=== PATIENT | male | born 1945 | race Caucasian/White ===

== ENCOUNTER 2016-06-10 07:41 | Emergency (ER) | payer MEDICARE, OTHER ==
[2016-06-10 08:30] LABS: Bilirubin Negative (Negative); Blood, Urine Negative (Negative); Clarity Clear (Clear); Glucose, Urine (Dipstick) Negative (Negative); Leukocyte Negative (Negative); Nitrite Negative (Negative); Protein, Urine (Dipstick) Negative (Neg-Trace); Specific Gravity, Urine 1.015 (1.005-1.030); Urobilinogen 0.2 mg/dL (0.2-1.0)
[2016-06-10] MEDS ORDERED: Ketorolac Tromethamine 30 MG/ML VIAL ONE (08:39)
[2016-06-10 09:00] LABS: #Lymphocytes 0.7 thou/uL (1.20-3.40); #Monocytes 0.4 thou/uL (0.11-0.59); #Neutrophils 3.1 thou/uL (1.40-6.50); %Basophils 0.7 % (0.0-1.0); %Eosinophils 0.9 % (0.0-10.0); %Lymphocytes 15.8 % (21.0-51.0); %Monocytes 10.3 % (0.0-10.0); %Neutrophils 72.3 % (42.0-75.0); Hemoglobin 16.2 g/dL (14.0-18.0); Mean Corpuscular HGB CONC 34.2 g/dL (32.0-36.0); Mean Corpuscular Hemoglobin 29.6 pg (27.0-31.0); Mean Corpuscular Volume 86.5 fl (80.0-94.0); Mean Platelet Volume 8.8 fL (7.4-10.4); Platelet Count 187 thou/uL (130-400); RBC Distribution Width 11.9 % (11.5-14.5); Red Blood Cell (RBC) Count 5.47 mill/uL (4.70-6.10); White Blood Cell (WBC) Count 4.3 thou/uL (4.8-10.8)
--- NOTE | 2016-06-10 09:01 | CT ---
CT OF THE ABDOMEN AND PELVIS WITHOUT CONTRAST: HISTORY: Posterior abdominal pain. History of kidney disease. TECHNIQUE: Multiple contiguous axial images were obtained in a CT of the abdomen and pelvis without contrast. Coronal reformats were performed. FINDINGS: There appear to be calcified gallstones within the gallbladder neck. There are hypodensities in the bilateral kidneys measuring up to 1.5 cm in size which may represent cysts. The liver, adrenal gla nds, spleen, and pancreas are unremarkable, although evaluation is limited without IV contrast. No free air, free fluid, or stranding changes are seen in the abdomen and pelvis. The urinary bladd er is significantly distended. The large and small bowel are unremarkable. The appendix is normal. No abdominal or pelvic lymphadenopathy are seen. Atherosclerotic calcifications are seen in the aor ta. There is a focal area of aneurysmal dilatation of the infrarenal aorta measuring 3.7 cm in grea test dimension. IMPRESSION: 1. Cholelithiasis. 2. Bilateral renal cysts. 3. 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 POS: [facility] [place]
[2016-06-10 09:27] LABS: Anion Gap 16 mmol/L (10-20); BUN (Urea Nitrogen) 10 mg/dL (8.4-25.7); Calc. Creatinine Clearance 0 mL/min (70-130); Carbon Dioxide 25 mmol/L (23-31); Chloride 96 mmol/L (98-107); Estimated GFR-MDRD 75; Glucose 137 mg/dL (83-110); Potassium 4.3 mmol/L (3.5-5.1); Sodium 133 mmol/L (136-145)
--- NOTE | 2016-06-10 09:58 | ERRECORD ---
[facility] EMERGENCY RECORD HPI FLANK PAIN (08:18 RWAG) CHIEF COMPLAINT: Patient presents for evaluation of flank pain, on the right. HISTORIAN: History provided by patient, right flank pain for 3 days. LOCATION MALE: Symptoms are localized, most severe in the right flank. QUALITY: Unable to describe the quality of the pain. SEVERITY: Maximum severity of symptoms mild, Currently symptoms are mild, Maximum severity of pain rated as 5/10, Current severity of pain rated as 5/10. TIME COURSE: Patient unable to describe onset of symptoms, There has been no change in the patient's symptoms over time. ASSOCIATED WITH MALE: Associated with nausea, Associated with vomiting. EXACERBATED BY: Patient's condition exacerbated by nothing. RELIEVED BY: Patient's condition relieved by nothing. ROS (08:22 RWAG) CONSTITUTIONAL: Negative constitutional review of systems. EYES: Negative eye review of systems. ENT: Negative ears, nose, throat review of systems. CARDIOVASCULAR: Negative cardiovascular review of systems. RESPIRATORY: Negative respiratory review of systems. GI: Negative gastrointestinal review of systems. GENITOURINARY MALE: Negative genitourinary review of systems. MUSCULOSKELETAL: Negative musculoskeletal review of systems. SKIN: Negative skin review of systems. NEUROLOGIC: Negative neurologic review of systems. ENDOCRINE: Negative endocrine review of systems. HEMO/LYMPHATIC: Normal hematologic/lymphatic system review. ALLERGIC/IMMUNOLOGIC: Normal allergy/immunologic system review. PSYCHIATRIC: Negative psychiatric review of systems. NOTES: All systems reviewed, negative except as described above. PAST MEDICAL HISTORY (08:12 JPER) MEDICAL HISTORY: Past medical history includes history of hypertension, which has been treated, Patient is compliant, Past medical history includes renal disease, 'MILD KIDNEY DISEASE'. MALE SURGICAL HISTORY: Surgical history of orthopedic surgery, Date of surgery LEFT KNEE. PSYCHIATRIC HISTORY: Notes: DENIES. SOCIAL HISTORY: Patient drinks socially, every week, Patient denies drug use, Patient has no smoking history. KNOWN ALLERGIES No Known Drug Allergies CURRENT MEDICATIONS &a-1R&a+25V*p+0X*z4237K*c202B*c15G*c2P*p-0X&a-25V&a+1R Name: Wayne Magallanes : 1945 M71 MedRec: [id number] AcctNum: [id number] Prepared: Marta Jun 10, 2016 09:56 by Interface Page 1 of 3 pMD [facility] EMERGENCY RECORD No recorded medications VITAL SIGNS VITAL SIGNS: BP: 160/84, Pulse: 60, Resp: 18, Temp: 97.1 (Tympanic), O2 sat: 96 on Room Air, Time: 06/10/2016 08:08. (08:08 JPER) BP: 142/80, Pulse: 57, Resp: 18, O2 sat: 96 on Room Air, Time: 06/10/2016 08:29. (08:29 SG) BP: 145/89, Pulse: 56, Resp: 18, O2 sat: 96 on Room Air, Time: 06/10/2016 09:00. (09:00 SG) BP: 139/73, Pulse: 54, Resp: 18, O2 sat: 95 on Room Air, Time: 06/10/2016 09:30. (09:30 SG) BP: 123/66, Pulse: 51, Resp: 18, Temp: 97.2 (Temporal), O2 sat: 96 on Room Air, Time: 06/10/2016 09:45. (09:45 SG) BP: 123/66, Pulse: 51, Resp: 18, Temp: 97.2 (Temporal), O2 sat: 96 on Room Air, Time: 06/10/2016 09:45. (09:45 SG) PHYSICAL EXAM (08:23 RWAG) CONSTITUTIONAL: Vital signs reviewed. HEAD: Head exam normal. EYES: Eye exam normal. ENT: ENT exam normal. NECK: Neck exam normal. RESPIRATORY CHEST: Respiratory and chest exam normal. CARDIOVASCULAR: Cardiovascular assessment normal. ABDOMEN MALE: Abdominal exam normal. GENITOURINARY MALE: External genitalia normal. BACK: Back exam included findings of normal inspection, range of motion normal, Tenderness, paraspinal to the right lower. UPPER EXTREMITY: Upper extremity exam normal, no cyanosis. LOWER EXTREMITY: Lower extremity exam normal. NEURO: Neuro exam normal. SKIN: Skin exam normal. LYMPHATIC: Lymphatic exam normal. PSYCHIATRIC: Psychiatric exam normal. MEDICATION ADMINISTRATION SUMMARY Drug Name: ketorolac injection, Dose Ordered: 30 mg, Route: IV Push, Status: Given, Time: 08:39 06/10/2016, Detailed record available in Medication Service section. PROBLEM LIST No recorded problems DIAGNOSIS (09:32 RWAG) FINAL: PRIMARY: UNSPECIFIED RENAL COLIC. PRESCRIPTION &a-1R&a+25V*p+0X*k6911L*c202B*c15G*c2P*p-0X&a-25V&a+1R Name: Wayne Magallanes : 1945 M71 MedRec: [id number] AcctNum: [id number] Prepared: Marta Jun 10, 2016 09:56 by Interface Page 2 of 3 pMD [facility] EMERGENCY RECORD Ultram: TABLET : 50 mg : ORAL : Quantity: 2 Unit: tab(s) Route: ORAL Schedule: every 6 hours PRN Dispense: 20 Unit: tab(s) May substitute. Refills: No Refills . (09:30 RWAG) NOTES: No Refills. (09:30 RWAG) Toradol oral: TABLET : 10 mg : ORAL : Quantity: 1 Unit: tab(s) Route: ORAL Schedule: 3 times a day Dispense: 9 Unit: tab(s) May substitute. Refills: No Refills . (09:31 RWAG) NOTES: No Refills. (09:31 RWAG) DISPOSITION PATIENT: Disposition Type: Discharge, Disposition: *Discharge Home, Disposition Transport: Car, Condition: Improved. (09:32 RWAG) Patient left the department. (09:50 JPER) Aly: LIBERTY=PAULIE Padgett, Cynthia RWAG=MD Uri, Clemente SG=MICHELE Carpio Shanah &a-1R&a+25V*p+0X*x2047K*c202B*c15G*c2P*p-0X&a-25V&a+1R Name: Wayne Magallanes : 1945 M71 MedRec: [id number] AcctNum: [id number] Prepared: Marta Jun 10, 2016 09:56 by Interface Page 3 of 3 pMD MTDD
--- NOTE | 2016-06-10 10:05 | PICIS ---
[facility] EMERGENCY RECORD TRIAGE (08:12 JPER) PATIENT: NAME: Wayne Magallanes, AGE: 71, GENDER: male, : Marta 1945, TIME OF GREET: Marta Jun 10, 2016 07:42, PREFERRED LANGUAGE: [place], RACE: WHITE, ETHNICITY: Not or , ECODE BILLING MAP: [facility], SSN: [id number], Zip Code: [address], KG WEIGHT: 83.91, PHONE: , , , PERSON ID: [id number], PCP: DO Funk Hillary. (08:12 JPER) COMPLAINT: KIDNEY ISSUES. (08:12 JPER) ADMISSION: URGENCY: 3 Urgent, ADMISSION SOURCE: Home, TRANSPORT: Walk-in, BED: ED -03. (08:12 JPER) ASSESSMENT: Assessment: RIGHT FLANK PAIN X 3 DAYS. (08:12 JPER) PAIN: Patient complains of pain described as, aching, Pain is constant, No aggravating factors, No relieving factors. (08:12 JPER) IMMUNIZATIONS: Flu vaccine up to date, Tetanus immunization up to date, Pneumococcal vaccine up to date. (08:12 JPER) SIRS SCORING: Heart Rate 55-109 (0), Temp range 96.8-101.1 (0), respiratory rate 12-24 (0), Mental Status altered: no (0). (08:12 JPER) TRIAGE SCREENING: Patient denies suicidal ideation, Patient denies presence of domestic violence. (08:12 JPER) PROVIDERS: TRIAGE NURSE: Cynthia Padgett RN. (08:12 JPER) VITAL SIGNS: BP 160/84, Pulse 60, Resp 18, Temp 97.1, (Tympanic), O2 Sat 96, on Room Air, Time 06/10/2016 08:08. (08:08 JPER) PREVIOUS VISIT ALLERGIES: No Known Drug Allergies. (08:12 JPER) KNOWN ALLERGIES No Known Drug Allergies CURRENT MEDICATIONS No recorded medications VITAL SIGNS VITAL SIGNS: BP: 160/84, Pulse: 60, Resp: 18, Temp: 97.1 (Tympanic), O2 sat: 96 on Room Air, Time: 06/10/2016 08:08. (08:08 JPER) BP: 142/80, Pulse: 57, Resp: 18, O2 sat: 96 on Room Air, Time: 06/10/2016 08:29. (08:29 SG) BP: 145/89, Pulse: 56, Resp: 18, O2 sat: 96 on Room Air, Time: 06/10/2016 09:00. (09:00 SG) BP: 139/73, Pulse: 54, Resp: 18, O2 sat: 95 on Room Air, Time: 06/10/2016 09:30. (09:30 SG) BP: 123/66, Pulse: 51, Resp: 18, Temp: 97.2 (Temporal), O2 sat: 96 on Room Air, Time: 06/10/2016 09:45. (09:45 SG) BP: 123/66, Pulse: 51, Resp: 18, Temp: 97.2 (Temporal), O2 sat: 96 on Room Air, Time: 06/10/2016 09:45. (09:45 SG) NURSING ASSESSMENT: ABDOMEN (09:03 JPER) CONSTITUTIONAL: Patient arrives ambulatory, Gait steady, History &a-1R&a+25V*p+0X*h7828P*c202B*c15G*c2P*p-0X&a-25V&a+1R Name: Wayne Magallanes : 1945 M71 MedRec: [id number] AcctNum: [id number] Prepared: Marta Jun 10, 2016 10:02 by Interface Page 1 of 8 pMD [facility] EMERGENCY RECORD obtained from patient, Patient appears, uncomfortable, Patient cooperative, Patient alert, Oriented to person, place and time, Skin warm, Skin dry, Skin normal in color, Mucous membranes pink, Mucous membranes moist, Patient is well-groomed, Patient complains of RIGHT FLANK PAIN / OCC VOMITING. PAIN: aching pain, to the right flank, on a scale 0-10 patient rates pain as 5, Pain exacerbated by nothing, Nothing has been tried to alleviate the pain. ABDOMEN: Abdomen soft. GENITOURINARY MALE: Notes: DEFERRED; UA REQUESTED. NOTES: Emotional support needed and given, Patient tolerated procedure well. NURSING PROCEDURE: DISCHARGE NOTE (09:50 JPER) DISCHARGE: Patient discharged to home, ambulating without assistance, family driving, accompanied by //partner, Summary of Care printed/ provided, Patient requested and was provided an electronic copy of Discharge Instructions, Transition record given to patient, Discharge instructions given to patient, Prescriptions given and instructions on side effects given, Above person(s) verbalized understanding of discharge instructions and follow-up care, Patient instructed not to drive home, Patient treated and evaluated by physician. BELONGINGS: Belongings remain with patient, Valuables remain with patient. NOTES: Emotional support needed and given, Patient tolerated procedure well. NURSING PROCEDURE: IV PATIENT IDENITIFIER: Patient's identity verified by patient stating name, Patient's identity verified by hospital ID bracelet. (08:45 JPER) Patient's identity verified by patient stating name, Patient's identity verified by hospital ID bracelet. (09:39 JPER) Patient's identity verified by patient stating name, Patient's identity verified by hospital ID bracelet. (09:49 JPER) IV SITE 1: IV therapy indicated for hydration, IV therapy indicated for medication administration, IV therapy indicated for LAB DRAW, IV established, to the right hand, using a 20 gauge catheter, in one attempt, IV site prepped with CHLOROPREP, Labs drawn at time of placement, labeled in the presence of the patient and sent to lab. (08:45 JPER) FOLLOW-UP SITE 1: After procedure, sterile transparent dressing applied. (08:45 JPER) After procedure, no drainage at IV site, After procedure, no swelling at IV site, After procedure, no redness at IV site, IV discontinued, due to patient being discharged, catheter intact. (09:39 JPER) After procedure, no drainage at IV site, After procedure, no swelling at IV site, After procedure, no redness at IV site, IV discontinued, due to patient being discharged, catheter intact. (09:49 JPER) &a-1R&a+25V*p+0X*f9276T*c202B*c15G*c2P*p-0X&a-25V&a+1R Name: Wayne Magallanes : 1945 M71 MedRec: [id number] AcctNum: [id number] Prepared: Marta Jun 10, 2016 10:02 by Interface Page 2 of 8 pMD [facility] EMERGENCY RECORD NOTES: Emotional support needed and given. (09:39 JPER) ORDER DETAILS Order Name: Basic Metabolic Panel, Status: Active, Time: 08:17 06/10/2016, User: CARLOS A, - Ordered for: MD Grewal Richard, - Entered by: MD Grewal Richard - Sun Jun 10, 2016 08:17, - Quantity: 1, Order Name: CBC with Differential, Status: Active, Time: 08:17 06/10/2016, User: CARLOS A, - Ordered for: MD Grewal Richard, - Entered by: MD Grewal Richard - Sun Jun 10, 2016 08:17, - Quantity: 1, Order Name: CT Stone Protocol, Status: Active, Time: 08:17 06/10/2016, User: CARLOS A, - Ordered for: MD Grewal Richard, - Entered by: MD Grewal Richard - Sun Jun 10, 2016 08:17, - Quantity: 1, Order Name: SALINE LOCK, Status: Done, Time: 08:54 06/10/2016, User: , - Ordered for: MD Grewal Richard, - Entered by: MD Grewal Richard - Sun Jun 10, 2016 08:17, - Quantity: 1, Order Name: Urinalysis w/ Rflx Microscopic, Status: Active, Time: 08:17 06/10/2016, User: CARLOS A, - Ordered for: MD Grewal Richard, - Entered by: MD Grewal Richard - Sun Jun 10, 2016 08:17, - Quantity: 1. MEDICATION ADMINISTRATION SUMMARY Drug Name: ketorolac injection, Dose Ordered: 30 mg, Route: IV Push, Status: Given, Time: 08:39 06/10/2016, Detailed record available in Medication Service section. MEDICATION SERVICE (08:39 [facility]) ketorolac injection: Order: ketorolac injection (ketorolac tromethamine) - Dose: 30 mg : IV Push Schedule: Now Ordered by: Clemente Grewal MD Entered by: MD Marta Chin Jun 10, 2016 08:18 Documented as given by: PAULIE Chávez Jun 10, 2016 08:39 Patient, Medication, Dose, Route and Time verified prior to administration. Amount given: 30 MG, IV SITE #1 IVP, initial medication, Slowly, Catheter placement confirmed via flush prior to administration, IV site without signs or symptoms of infiltration during medication administration, No swelling during administration, No drainage during administration, IV flushed after administration, Correct patient, &a-1R&a+25V*p+0X*u8180J*c202B*c15G*c2P*p-0X&a-25V&a+1R Name: Wayne Magallanes : 1945 M71 MedRec: [id number] AcctNum: [id number] Prepared: Marta Jun 10, 2016 10:02 by Interface Page 3 of 8 pMD [facility] EMERGENCY RECORD time, route, dose and medication confirmed prior to administration, Patient advised of actions and side-effects prior to administration, Allergies confirmed and medications reviewed prior to administration, Administered by ALLY APODACA, Patient in position of comfort, Side rails up, Cart in lowest position, Family at bedside. HPI FLANK PAIN (08:18 RW) CHIEF COMPLAINT: Patient presents for evaluation of flank pain, on the right. HISTORIAN: History provided by patient, right flank pain for 3 days. LOCATION MALE: Symptoms are localized, most severe in the right flank. QUALITY: Unable to describe the quality of the pain. SEVERITY: Maximum severity of symptoms mild, Currently symptoms are mild, Maximum severity of pain rated as 5/10, Current severity of pain rated as 5/10. TIME COURSE: Patient unable to describe onset of symptoms, There has been no change in the patient's symptoms over time. ASSOCIATED WITH MALE: Associated with nausea, Associated with vomiting. EXACERBATED BY: Patient's condition exacerbated by nothing. RELIEVED BY: Patient's condition relieved by nothing. ROS (08:22 RWAG) CONSTITUTIONAL: Negative constitutional review of systems. EYES: Negative eye review of systems. ENT: Negative ears, nose, throat review of systems. CARDIOVASCULAR: Negative cardiovascular review of systems. RESPIRATORY: Negative respiratory review of systems. GI: Negative gastrointestinal review of systems. GENITOURINARY MALE: Negative genitourinary review of systems. MUSCULOSKELETAL: Negative musculoskeletal review of systems. SKIN: Negative skin review of systems. NEUROLOGIC: Negative neurologic review of systems. ENDOCRINE: Negative endocrine review of systems. HEMO/LYMPHATIC: Normal hematologic/lymphatic system review. ALLERGIC/IMMUNOLOGIC: Normal allergy/immunologic system review. PSYCHIATRIC: Negative psychiatric review of systems. NOTES: All systems reviewed, negative except as described above. PAST MEDICAL HISTORY (08:12 JPER) MEDICAL HISTORY: Past medical history includes history of hypertension, which has been treated, Patient is compliant, Past medical history includes renal disease, 'MILD KIDNEY DISEASE'. MALE SURGICAL HISTORY: Surgical history of orthopedic surgery, Date of surgery LEFT KNEE. PSYCHIATRIC HISTORY: Notes: DENIES. SOCIAL HISTORY: Patient drinks socially, every week, Patient &a-1R&a+25V*p+0X*u0335K*c202B*c15G*c2P*p-0X&a-25V&a+1R Name: Wayne Magallanes : 1945 M71 MedRec: [id number] AcctNum: [id number] Prepared: Marta Jun 10, 2016 10:02 by Interface Page 4 of 8 pMD [facility] EMERGENCY RECORD denies drug use, Patient has no smoking history. PHYSICAL EXAM (08:23 RWAG) CONSTITUTIONAL: Vital signs reviewed. HEAD: Head exam normal. EYES: Eye exam normal. ENT: ENT exam normal. NECK: Neck exam normal. RESPIRATORY CHEST: Respiratory and chest exam normal. CARDIOVASCULAR: Cardiovascular assessment normal. ABDOMEN MALE: Abdominal exam normal. GENITOURINARY MALE: External genitalia normal. BACK: Back exam included findings of normal inspection, range of motion normal, Tenderness, paraspinal to the right lower. UPPER EXTREMITY: Upper extremity exam normal, no cyanosis. LOWER EXTREMITY: Lower extremity exam normal. NEURO: Neuro exam normal. SKIN: Skin exam normal. LYMPHATIC: Lymphatic exam normal. PSYCHIATRIC: Psychiatric exam normal. EVENTS TRANSFER: Triage to Emergency Main ED -03. (Marta Jun 10, 2016 08:12 JPER) Removed from Emergency Main ED -03. (09:50 JPER) PROBLEM LIST No recorded problems DIAGNOSIS (09:32 RWAG) FINAL: PRIMARY: UNSPECIFIED RENAL COLIC. DISPOSITION PATIENT: Disposition Type: Discharge, Disposition: *Discharge Home, Disposition Transport: Car, Condition: Improved. (09:32 RWAG) Patient left the department. (09:50 JPER) INSTRUCTION (09:33 RWAG) DISCHARGE: RENAL STONE PASSED. FOLLOWUP: DO Funk Hillary, [facility], [address] [place] [id number], , Follow up with Primary Care Physician in 2-3 days. SPECIAL: Follow-up with your PCP. PRESCRIPTION Ultram: TABLET : 50 mg : ORAL : Quantity: 2 Unit: tab(s) Route: ORAL Schedule: every 6 hours PRN Dispense: 20 Unit: tab(s) May substitute. Refills: No Refills . (09:30 RWAG) &a-1R&a+25V*p+0X*e8988H*c202B*c15G*c2P*p-0X&a-25V&a+1R Name: Wayne Magallanes : 1945 M71 MedRec: [id number] AcctNum: [id number] Prepared: Marta Jun 10, 2016 10:02 by Interface Page 5 of 8 pMD [facility] EMERGENCY RECORD NOTES: No Refills. (09:30 RWAG) Toradol oral: TABLET : 10 mg : ORAL : Quantity: 1 Unit: tab(s) Route: ORAL Schedule: 3 times a day Dispense: 9 Unit: tab(s) May substitute. Refills: No Refills . (09:31 RWAG) NOTES: No Refills. (09:31 RWAG) IMAGING (09:51 JPER) *DISCHARGE INSTRUCTIONS RECEIPT: Image captured from scanner. *SUPPLY CHARGE SHEET: Image captured from scanner. ADMIN DIGITAL SIGNATURE: PAULIE Padgett, Cynthia. (09:50 JPER) MD Grewal Richard. (09:54 RWAG) MD Grewal Richard. (09:54 RWAG) RESULTS RADIOLOGY: CT Stone Protocol Observe DT: Marta Jun 10, 2016 08:19, STONE CT OF THE ABDOMEN AND PELVIS WITHOUT CONTRAST: HISTORY: Posterior abdominal pain. History of kidney disease. TECHNIQUE: Multiple contiguous axial images were obtained in a CT of the abdomen and pelvis without contrast. Coronal reformats were performed. FINDINGS: There appear to be calcified gallstones within the gallbladder neck. There are hypodensities in the bilateral kidneys measuring up to 1.5 cm in size which may represent cysts. The liver, adrenal gla nds, spleen, and pancreas are unremarkable, although evaluation is limited without IV contrast. No free air, free fluid, or stranding changes are seen in the abdomen and pelvis. The urinary bladd er is significantly distended. The large and small bowel are unremarkable. The appendix is normal. No abdominal or pelvic lymphadenopathy are seen. Atherosclerotic calcifications are seen in the aor ta. There is a focal area of aneurysmal dilatation of the infrarenal aorta measuring 3.7 cm in grea test dimension. IMPRESSION: 1. Cholelithiasis. &a-1R&a+25V*p+0X*d9021M*c202B*c15G*c2P*p-0X&a-25V&a+1R Name: Wayne Magallanes : 1945 M71 MedRec: [id number] AcctNum: [id number] Prepared: Justice Jun 10, 2016 10:02 by Interface Page 6 of 8 pMD [facility] EMERGENCY RECORD 2. Bilateral renal cysts. 3. 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 POS: [facility] . (09:29 [facility]) LABORATORY: Urinalysis w/ Rflx Microscopic Collection DT: Justice Jun 10, 2016 08:30, Color Yellow , Range (Yellow), Clarity Clear , Range (Clear), Specific [place], Urine 1.015 , Range (1.005-1.030), pH, Urine 7.0 , Range (5.0-9.0), Leukocyte Negative , Range (Negative), Nitrite Negative , Range (Negative), Protein, Urine (Dipstick) Negative mg/dL, Range (Neg-Trace), Glucose, Urine (Dipstick) Negative mg/dL, Range (Negative), Ketone, Urine Negative mg/dL, Range (Negative), Urobilinogen 0.2 mg/dL, Range (0.2-1.0), Bilirubin Negative , Range (Negative), Blood, Urine Negative , Range (Negative). (08:41 [facility]) CBC with Differential Collection DT: Justice Jun 10, 2016 08:55, *White Blood Cell (WBC) Count 4.3 - L thou/uL, Range (4.8-10.8), Red Blood Cell (RBC) Count 5.47 mill/uL, Range (4.70-6.10), Hemoglobin 16.2 g/dL, Range (14.0-18.0), Hematocrit 47.3 %, Range (42.0-52.0), Mean Corpuscular Volume 86.5 fl, Range (80.0-94.0), Mean Corpuscular Hemoglobin 29.6 pg, Range (27.0-31.0), Mean Corpuscular HGB CONC 34.2 g/dL, Range (32.0-36.0), RBC Distribution Width 11.9 %, Range (11.5-14.5), Platelet Count 187 thou/uL, Range (130-400), Mean Platelet Volume 8.8 fL, Range (7.4-10.4), %Neutrophils 72.3 %, Range (42.0-75.0), *%Lymphocytes 15.8 - L %, Range (21.0-51.0), *%Monocytes 10.3 - H %, Range (0.0-10.0), %Eosinophils 0.9 %, Range (0.0-10.0), %Basophils 0.7 %, Range (0.0-1.0), #Neutrophils 3.1 thou/uL, Range (1.40-6.50), *#Lymphocytes 0.7 - L thou/uL, Range (1.20-3.40), #Monocytes 0.4 thou/uL, Range (0.11-0.59), #Eosinphils 0.0 thou/uL, Range (0.0-0.7), #Basophils 0.0 thou/uL, Range (0.0-0.2). (09:03 [facility]) CBC with Differential Collection DT: Marta Jun 10, 2016 09:10, *White Blood Cell (WBC) Count 4.3 - L thou/uL, Range (4.8-10.8), Red Blood Cell (RBC) Count 5.47 mill/uL, Range (4.70-6.10), Hemoglobin 16.2 g/dL, Range (14.0-18.0), Hematocrit 47.3 %, Range (42.0-52.0), Mean Corpuscular Volume 86.5 fl, Range (80.0-94.0), Mean Corpuscular Hemoglobin 29.6 pg, Range (27.0-31.0), Mean Corpuscular HGB CONC 34.2 g/dL, Range (32.0-36.0), RBC Distribution Width 11.9 %, Range (11.5-14.5), Platelet Count 187 thou/uL, Range (130-400), &a-1R&a+25V*p+0X*i0527U*c202B*c15G*c2P*p-0X&a-25V&a+1R Name: Wayne Magallanes : 1945 M71 MedRec: [id number] AcctNum: [id number] Prepared: Marta Jun 10, 2016 10:02 by Interface Page 7 of 8 pMD [facility] EMERGENCY RECORD Mean Platelet Volume 8.8 fL, Range (7.4-10.4), %Neutrophils 72.3 %, Range (42.0-75.0), *%Lymphocytes 15.8 - L %, Range (21.0-51.0), *%Monocytes 10.3 - H %, Range (0.0-10.0), %Eosinophils 0.9 %, Range (0.0-10.0), %Basophils 0.7 %, Range (0.0-1.0), #Neutrophils 3.1 thou/uL, Range (1.40-6.50), *#Lymphocytes 0.7 - L thou/uL, Range (1.20-3.40), #Monocytes 0.4 thou/uL, Range (0.11-0.59), #Eosinphils 0.0 thou/uL, Range (0.0-0.7), #Basophils 0.0 thou/uL, Range (0.0-0.2). (09:14 RW) Aly: LIBERTY=PAULIE Padgett, Cynthia RWAG=MD Uri, Clemente SG=MICHELE Carpio Shanah &a-1R&a+25V*p+0X*k1158P*c202B*c15G*c2P*p-0X&a-25V&a+1R Name: Wayne Magallanes : 1945 M71 MedRec: [id number] AcctNum: [id number] Prepared: SatJun 10, 2016 10:02 by Interface Page 8 of 8 pMD [facility] MEDICATION RECONCILIATION You were seen in the Emergency Department on: SatJun 10, 2016 KNOWN ALLERGIES No Known Drug Allergies MEDICATIONS GIVEN WHILE IN THE EMERGENCY DEPARTMENT ketorolac injection (ketorolac tromethamine) - Dose: 30 milligram(s) : IV Push Notes from the emergency department Reviewed with patient Reviewed with patient PRESCRIPTIONS (2) Printed (2) Ultram : TABLET : 50 mg : ORAL Quantity: 2, Unit: tab(s), Route: ORAL, Schedule: every 6 hours PRN, Dispense: 20 Unit: tab(s) &a-1R&a+25V*p+0X*a9758O*c202B*c15G*c2P*p-0X&a-25V&a+1R Name: Wayne Magallanes : 1945 M71 MedRec: [id number] AcctNum: [id number] Prepared: Marta Jun 10, 2016 10:02 by Interface pMD [facility]ENTER[facility]il[facility]
== END 2016-06-10 09:50 | disposition home or self-care (01) ==
LOC: MADERS 07:41
DX: N23 Unspecified renal colic (principal); I10 Essential (primary) hypertension
CPT/HCPCS: 74176; 80048; 81003; 85025; 96374; J1885

== ENCOUNTER 2017-05-23 08:20 | Outpatient (CLI) | payer MEDICARE, OTHER ==
[2017-05-23 08:43] LABS: #Basophils 0.1 thou/uL (0.0-0.2); #Eosinphils 0.2 thou/uL (0.0-0.7); #Lymphocytes 1.4 thou/uL (1.20-3.40); #Monocytes 0.6 thou/uL (0.11-0.59); #Neutrophils 2.7 thou/uL (1.40-6.50); %Basophils 1.9 % (0.0-1.0); %Eosinophils 4.3 % (0.0-10.0); %Lymphocytes 28.4 % (21.0-51.0); %Monocytes 11.2 % (0.0-10.0); %Neutrophils 54.3 % (42.0-75.0); Hemoglobin 15.5 g/dL (14.0-18.0); Mean Corpuscular HGB CONC 32.5 g/dL (32.0-36.0); Mean Corpuscular Hemoglobin 29.6 pg (27.0-31.0); Mean Corpuscular Volume 91.3 fl (80.0-94.0); Mean Platelet Volume 8.7 fL (7.4-10.4); Platelet Count 251 thou/uL (130-400); Red Blood Cell (RBC) Count 5.24 mill/uL (4.70-6.10); White Blood Cell (WBC) Count 4.9 thou/uL (4.8-10.8)
[2017-05-23] MEDS ORDERED: Sodium Chloride 0.9% 100 ML BAG ONE (09:03)
[2017-05-23] MEDS ORDERED: Iopamidol 370 76% 125 ML VIAL FS ONE (09:03)
[2017-05-23 09:07] LABS: ALT (SGPT) 24 U/L (8-55); AST (SGOT) 22 U/L (5-34); Alkaline Phosphatase 81 U/L (40-150); Anion Gap 13 mmol/L (10-20); BUN (Urea Nitrogen) 17 mg/dL (8.4-25.7); Bilirubin, Direct 0.4 mg/dL (0.1-0.3); Bilirubin, Total 0.9 mg/dL (0.2-1.2); Calc. Creatinine Clearance 0 mL/min (70-130); Calcium 9.6 mg/dL (7.8-10.44); Carbon Dioxide 28 mmol/L (23-31); Cardiac Risk 3.3 (Less than 4.5); Chloride 102 mmol/L (98-107); Cholesterol 151 mg/dl (< 200 Desired); Estimated GFR-MDRD 57; Glucose 134 mg/dL (83-110); HDL Cholesterol 46 mg/dL (>60 Neg Risk); LDL Cholesterol, Calculated 83 mg/dL; Potassium 4.3 mmol/L (3.5-5.1); Protein, Total 7.3 g/dL (5.8-8.1); Sodium 139 mmol/L (136-145); Triglycerides 112 mg/dL (Less than 150)
--- NOTE | 2017-05-23 10:12 | CT ---
CT ARTERIOGRAM CHEST WITH IV CONTRAST AND 3D MIP IMAGING CT ARTERIOGRAM ABDOMEN WITH IV CONTRAST AND 3D MIP IMAGING: History: Aneurysm. Comparison: 06-10-16 FINDINGS: There is calcification in the arterial structures including the coronary artery. Normal branching of the great vessels is apparent. There is good contrast opacification of the pulmonary arteries. Abdominal visceral arteries are patent. 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 Fusiform dilatation of the lower abdominal aorta is now 4.3 x 3.5 cm diameter where it was previously 3.7 x 3.1 cm. Significant thrombus is present at the level of the greatest dilatation. The common il iac arteries are patent. Cyst projecting anteriorly from the left kidney is stable. There are degenerative changes of the lumb ar spine. [place] distention of the urinary bladder is partially visualized. IMPRESSION: 1. Interval enlargement of the fusiform lower abdominal aortic aneurysm, now measuring up to 4.3 cm. 2. Atherosclerosis. 3. Probably urinary retention of the bladder. POS: [facility]
[2017-05-23 17:26] LABS: Hemoglobin A1c 6.5 % (4.0-6.0)
== END 2017-05-23 08:21 | disposition home or self-care (01) ==
LOC: MADLABBHPM 08:20
PROVIDERS: ATTEND Family Medicine
DX: I71.4 Abdominal aortic aneurysm, without rupture (principal); E11.22 Type 2 diabetes mellitus with diabetic chronic kidney disease; N18.9 Chronic kidney disease, unspecified; E78.5 Hyperlipidemia, unspecified; I25.10 Atherosclerotic heart disease of native coronary artery without angina pectoris
CPT/HCPCS: 36415; 71275; 80048; 80061; 80076; 83036; 84443; 85025; J7050